=== PATIENT | female | born 1970 | race Two or more races ===

== ENCOUNTER 2016-11-08 17:39 | Emergency (ER) | payer OTHER ==
[~2016-11-08] VITALS: Ht 160 cm; Wt 78.0 kg
[2016-11-08] MEDS ORDERED: IBUPROFEN 600MG TABLET PO ONE (19:00)
[2016-11-08] MEDS ORDERED: TETANUS, DIPHTHERIA, PERTUSSIS VAC/PF 0.5ML (>7YR OLD) IM ONE (19:00)
[2016-11-08] MEDS ORDERED: LIDOCAINE HCL 1% 20ML VIAL (Pyxis) INJ MC ONE (21:45)
[2016-11-08] MEDS ORDERED: BACITRACIN ZINC OINT UDPKT TOP ONE (21:45)
[2016-11-08 23:09] VITALS: BP 132/74
== END 2016-11-08 23:14 | disposition home or self-care (01) ==
LOC: ER 17:40
DX: S91.312A Laceration without foreign body, left foot, initial encounter (principal); W22.8XXA Striking against or struck by other objects, initial encounter; Y93.89 Activity, other specified; Y92.9 Unspecified place or not applicable; Y99.2 Volunteer activity
CPT/HCPCS: 12001; 73630; 90471; 90715; 99284; J3490; X7700; Z7610

== ENCOUNTER 2020-11-15 00:49 | Emergency (ER) | payer MEDICAID, OTHER ==
[~2020-11-15] VITALS: Ht 152.4 cm; Wt 78.0 kg
[2020-11-15] MEDS ORDERED: ONDANSETRON HCL 4MG/2ML INJ IV STA (01:52)
[2020-11-15] MEDS ORDERED: MORPHINE SULFATE 4 MG/ML CPJ (NOT FOR IM USE) IV STA (01:52)
[2020-11-15] MEDS ORDERED: SODIUM CHLORIDE 0.9% 1,000 ML IV ONE (02:00)
[2020-11-15 02:20] LABS: CHLORIDE 104 mEq/L (98-107)
[2020-11-15 02:30] LABS: BASOPHILS % 0.2 % (0.0-2.0); EOSINOPHILS % 0.3 % (0.0-5.0); HEMATOCRIT. 38.1 % (36.0-48.0); HEMOGLOBIN. 12.9 g/dL (12.0-16.0); LYMPHOCYTES % 11.8 % (20.0-50.0); MEAN CORPUSCULAR HEMOGLOBIN 27.5 pg (28.0-32.0); MEAN PLATELET VOLUME 9.2 fl (7.4-10.4); MONOCYTES % 4.3 % (2.0-8.0); NEUTROPHILS % 83.4 % (40.0-76.0); PLATELET 280 x1000/uL (130-400)
[2020-11-15 02:32] LABS: PROTHROMBIN TIME 10.7 sec (9.6-11.0)
[2020-11-15 03:03] LABS: HCG SCREEN NEGATIVE
[2020-11-15] MEDS ORDERED: MORPHINE SULFATE 4 MG/ML CPJ (NOT FOR IM USE) IV ONE (05:15)
[2020-11-15 05:43] LABS: CLARITY URINE CLEAR (CLEAR); COLOR URINE YELLOW (YELLOW); KETONES URINE 1+ (NEGATIVE); LEUKOCYTE ESTERASE URINE NEGATIVE (NEGATIVE); NITRITE URINE NEGATIVE (NEGATIVE); OCCULT BLOOD URINE NEGATIVE (NEGATIVE); PROTEIN URINE NEGATIVE (NEGATIVE); SPECIFIC GRAVITY URINE 1.014 (1.005-1.030)
[2020-11-15 07:00] VITALS: BP 156/75
== END 2020-11-15 07:22 | disposition short-term general hospital (02) ==
LOC: ER 01:08 → CANBEDREQ 10:07
DX: K56.609 Unspecified intestinal obstruction, unspecified as to partial versus complete obstruction (principal); I10 Essential (primary) hypertension; Z98.890 Other specified postprocedural states
CPT/HCPCS: 36415; 71045; 74176; 80053; 81003; 83605; 83690; 84703; 85025; 85610; 86850; 86900; 86901; 93005; 96361; 96374; 96375; 96376; 99285; J2270; J2405; J7030